=== PATIENT | female | born 1965 | race Caucasian/White ===

== ENCOUNTER 2018-07-16 20:18 | Inpatient (IN) | payer SELFPAY ==
[~2018-07-16] VITALS: Ht 157.5 cm; Wt 117.0 kg
[2018-07-16] MEDS ORDERED: IV NORMAL SALINE 1,000ML 1,000 ML IV SCH (20:40)
[2018-07-16] MEDS ORDERED: methylPREDNISolone SOD SUCC PF 125 MG/2 ML VIAL. IV ONE (20:45)
[2018-07-16] MEDS ORDERED: IPRATRPIUM/ALBUTEROL 0.5/2.5MG 3 ML NEBU. NEB ONE (20:45)
[2018-07-16] MEDS ORDERED: MORPHINE SULFATE 4 MG/ML DISP.SYRIN. IV/SQ PRN (20:45)
[2018-07-16 21:18] LABS: BASO # 0.1 x10^3/uL (0.0-0.2); BASO % 1 % (0-3); EOS % 0 % (0-3); HEMATOCRIT 42.9 % (36.0-47.0); HEMOGLOBIN 13.7 g/dL (12.0-15.5); LYMPH # 1.5 x10^3/uL (1.0-4.8); LYMPH % 13 % (24-48); MEAN CORPUSCULAR HEMOGLOBIN 28 pg (25-35); MEAN CORPUSCULAR HGB CONC 32 g/dL (31-37); MEAN CORPUSCULAR VOLUME 86 fL (79-100); MONO # 1.2 x10^3/uL (0.0-1.1); MONO % 11 % (0-9); NEUT # 8.6 x10^3uL (1.8-7.7); NEUT % 75 % (31-73); PLATELET COUNT 169 x10^3/uL (140-400); RED BLOOD COUNT 4.98 x10^6/uL (3.50-5.40); WHITE BLOOD COUNT 11.4 x10^3/uL (4.0-11.0)
[2018-07-16 21:33] LABS: ALBUMIN 3.2 g/dL (3.4-5.0); ALBUMIN/GLOBULIN RATIO 0.8 (1.0-1.7); CALCIUM 9.9 mg/dL (8.5-10.1); CREATININE 0.8 mg/dL (0.6-1.0); GFR 74.7; POTASSIUM 3.9 mmol/L (3.5-5.1); TOTAL BILIRUBIN 0.7 mg/dL (0.2-1.0); TOTAL PROTEIN 7.3 g/dL (6.4-8.2)
--- NOTE | 2018-07-16 21:36 | RAD ---
CHEST PA LATERAL CLINICAL INDICATION: Cough COMPARISON: None FINDINGS: Heart is normal in size. Bilateral central peribronchial wall thickening is seen. Small focus of consolidation is seen in the costophrenic recess. No pneumothorax or pleural effusion. Visualized bony thorax is within normal limits. IMPRESSION: Findings suggests costophrenic recess pneumonia and bronchitis. Electronically signed by: Robin Montiel DO (07/16/2018 9:33 PM) [facility]
[2018-07-16 21:46] LABS: INFLUENZA A PATIENT NEGATIVE (NEGATIVE); INFLUENZA B PATIENT NEGATIVE (NEGATIVE)
--- NOTE | 2018-07-16 22:16 | PHYS DOC ---
Adult General Chief Complaint Chief Complaint: DYSPNEA/RESPIRATOY DISTRESS HPI HPI Patient is a 52-year-old female who presents with complaint of cough, fever and shortness of breath that started 2 days ago. Patient states that symptoms have fairly rapidly worsened. She states that her cough has been productive of green sputum. She states the shortness of breath is worsened with minimal exertion. Patient is not on home oxygen. On arrival, patient's blood oxygen level was noted to be 88% on room air. She does complain of some pleuritic type pain in her right lower lateral rib region. She states the pain is worsened with deep breathing. She denies any abdominal pain, nausea or vomiting. Patient is not sure how high the fevers been at home. Review of Systems Review of Systems Constitutional: Complains of fever and chills [] Respiratory: Complains of productive cough and shortness of breath [] Cardiovascular: No additional information not addressed in HPI [] GI: Denies abdominal pain, nausea, vomiting or diarrhea [] Neurologic: Denies headache, focal weakness or sensory changes [] All other systems were reviewed and found to be within normal limits, except as documented in this note. Current Medications Current Medications Current Medications Medications (Trade) Dose Ordered Sig/Jhonathan Start Time Stop Time Status Last Admin Dose Admin Albuterol/ Ipratropium (Duoneb) 3 ml 1X ONCE 07/16/18 20:45 07/16/18 20:46 DC 07/16/18 21:25 3 ML Methylprednisolone Sodium Succinate (SOLU-Medrol 125MG VIAL) 125 mg 1X ONCE 07/16/18 20:45 07/16/18 20:46 DC 07/16/18 21:20 125 MG Morphine Sulfate (Morphine 4mg Syringe) 2 mg PRN Q15MIN PRN 07/16/18 20:45 07/17/18 20:44 07/16/18 21:21 2 MG Sodium Chloride 1,000 ml @ 1,000 mls/hr Q1H 07/16/18 20:40 07/16/18 21:39 DC 07/16/18 21:20 1,000 MLS/HR Allergies Allergies Allergies Coded Allergies Type Severity Reaction Last Updated Verified sulfamethoxazole Allergy Severe Itching 07/16/18 Yes trimethoprim Allergy Severe Itching 07/16/18 Yes coconut Allergy Intermediate Itching 07/16/18 Yes Uncoded Allergies Type Severity Reaction Last Updated Verified cats Allergy Unknown 07/16/18 Physical Exam Physical Exam Constitutional: Well developed, well nourished, no acute distress, non-toxic appearance. [] HENT: Normocephalic, atraumatic, bilateral external ears normal, oropharynx moist, no oral exudates, nose normal. [] Eyes: PERRLA, EOMI, conjunctiva normal, no discharge. [] Neck: Normal range of motion, no tenderness, supple, no stridor. [] Cardiovascular: Regular rate and rhythm[] Lungs & Thorax: Lungs demonstrate some mildly diminished breath sounds throughout and fine rhonchi in the right lung base [] Abdomen: Bowel sounds normal, soft, no tenderness. [] Skin: Warm, dry, no erythema, no rash. [] Extremities: No tenderness, no cyanosis, no clubbing, ROM intact. [] Neurologic: Alert and oriented X 3, no focal deficits noted. [] Current Patient Data Vital Signs Vital Signs Date Time Temp Pulse Resp B/P (MAP) Pulse Ox O2 Delivery O2 Flow Rate FiO2 07/16/18 21:28 93 Nasal Cannula 2.0 Lab Results Laboratory Tests Test 07/16/18 20:45 07/16/18 20:57 White Blood Count 11.4 x10^3/uL (4.0-11.0) H Red Blood Count 4.98 x10^6/uL (3.50-5.40) Hemoglobin 13.7 g/dL (12.0-15.5) Hematocrit 42.9 % (36.0-47.0) Mean Corpuscular Volume 86 fL (79-100) Mean Corpuscular Hemoglobin 28 pg (25-35) Mean Corpuscular Hemoglobin Concent 32 g/dL (31-37) Red Cell Distribution Width 15.0 % (11.5-14.5) H Platelet Count 169 x10^3/uL (140-400) Neutrophils (%) (Auto) 75 % (31-73) H Lymphocytes (%) (Auto) 13 % (24-48) L Monocytes (%) (Auto) 11 % (0-9) H Eosinophils (%) (Auto) 0 % (0-3) Basophils (%) (Auto) 1 % (0-3) Neutrophils # (Auto) 8.6 x10^3uL (1.8-7.7) H Lymphocytes # (Auto) 1.5 x10^3/uL (1.0-4.8) Monocytes # (Auto) 1.2 x10^3/uL (0.0-1.1) H Eosinophils # (Auto) 0.0 x10^3/uL (0.0-0.7) Basophils # (Auto) 0.1 x10^3/uL (0.0-0.2) Sodium Level 141 mmol/L (136-145) Potassium Level 3.9 mmol/L (3.5-5.1) Chloride Level 105 mmol/L (98-107) Carbon Dioxide Level 29 mmol/L (21-32) Anion Gap 7 (6-14) Blood Urea Nitrogen 9 mg/dL (7-20) Creatinine 0.8 mg/dL (0.6-1.0) Estimated GFR (Cockcroft-Gault) 74.7 BUN/Creatinine Ratio 11 (6-20) Glucose Level 125 mg/dL (70-99) H Lactic Acid Level 0.9 mmol/L (0.4-2.0) Calcium Level 9.9 mg/dL (8.5-10.1) Total Bilirubin 0.7 mg/dL (0.2-1.0) Aspartate Amino Transferase (AST) 14 U/L (15-37) L Alanine Aminotransferase (ALT) 17 U/L (14-59) Alkaline Phosphatase 114 U/L (46-116) Total Protein 7.3 g/dL (6.4-8.2) Albumin 3.2 g/dL (3.4-5.0) L Albumin/Globulin Ratio 0.8 (1.0-1.7) L Influenza Type A (Rapid) Negative (NEGATIVE) Influenza Type B (Rapid) Negative (NEGATIVE) EKG EKG [] Radiology/Procedures Radiology/Procedures [] Impressions: CHEST PA LATERAL CLINICAL INDICATION: Cough COMPARISON: None FINDINGS: Heart is normal in size. Bilateral central peribronchial wall thickening is seen. Small focus of consolidation is seen in the costophrenic recess. No pneumothorax or pleural effusion. Visualized bony thorax is within normal limits. IMPRESSION: Findings suggests costophrenic recess pneumonia and bronchitis. Electronically signed by: Robin Montiel DO (07/16/2018 9:33 PM) [facility] Course & Med Decision Making Course & Med Decision Making Pertinent Labs and Imaging studies reviewed. (See chart for details) [] Dragon Disclaimer Dragon Disclaimer This electronic medical record was generated, in whole or in part, using a voice recognition dictation system. Departure Departure: Impression: Primary Impression: Community acquired pneumonia Additional Impression: COPD with acute exacerbation Disposition: ADMITTED INPATIENT Admitting Physician: Sandhya Albarado Condition: IMPROVED Problem Qualifiers Primary Impression: Community acquired pneumonia Laterality: right Lung location: lower lobe of lung Qualified Codes: J18.1 - Lobar pneumonia, unspecified organism TRISTAN VU Jr. DO Jul 16, 2018 22:16
[2018-07-16] MEDS ORDERED: ONDANSETRON PF 4 MG/2 ML VIAL. IV PRN (22:30)
[2018-07-16] MEDS ORDERED: MORPHINE SULFATE 4 MG/ML DISP.SYRIN. IV PRN (22:30)
[2018-07-16] MEDS ORDERED: ACETAMINOPHEN 325 MG TABLET PO PRN (22:30)
[2018-07-16] MEDS ORDERED: AZITHROMYCIN 250 MG TABLET. PO ONE (22:30)
--- NOTE | 2018-07-16 23:15 | NUR ---
The patient, GILBERTO MILLER, 52 y/o, F admitted by ELISABETH HUDDLESTON MD, for pneumonia. PT was given written information regarding hospital policies, unit procedures and contact persons. Valuables were checked and left with pt. Pt VSS at this time. Will CTM.
[2018-07-17] VITALS (7 sets, daily range): BP systolic 109–141; BP diastolic 67–88
[2018-07-17] MEDS ORDERED: PROAIR (01:18)
[2018-07-17] MEDS: IPRATRPIUM/ALBUTEROL 0.5/2.5MG 3 ML NEBU. NEB SCH ×4 (05:23→20:21)
[2018-07-17 07:12] LABS: BASO % 0 % (0-3); EOS % 0 % (0-3); HEMATOCRIT 42.8 % (36.0-47.0); HEMOGLOBIN 13.8 g/dL (12.0-15.5); LYMPH # 0.8 x10^3/uL (1.0-4.8); LYMPH % 8 % (24-48); MEAN CORPUSCULAR HEMOGLOBIN 28 pg (25-35); MEAN CORPUSCULAR HGB CONC 32 g/dL (31-37); MEAN CORPUSCULAR VOLUME 88 fL (79-100); MONO # 0.3 x10^3/uL (0.0-1.1); MONO % 3 % (0-9); NEUT # 8.6 x10^3uL (1.8-7.7); NEUT % 89 % (31-73); PLATELET COUNT 170 x10^3/uL (140-400); RED BLOOD COUNT 4.89 x10^6/uL (3.50-5.40); RED CELL DISTRIBUTION WIDTH 14.6 % (11.5-14.5); WHITE BLOOD COUNT 9.6 x10^3/uL (4.0-11.0)
[2018-07-17 07:26] LABS: CALCIUM 10.4 mg/dL (8.5-10.1); CREATININE 0.8 mg/dL (0.6-1.0); GFR 74.7; POTASSIUM 4.8 mmol/L (3.5-5.1)
--- NOTE | 2018-07-17 14:58 | HP ---
ADMIT DATE: 07/17/2018 HISTORY OF PRESENT ILLNESS: The patient is a 52-year-old female patient, who came to the Emergency Room complaining of cough, fever, shortness of breath that started about 2 days ago. She stated her symptom have fairly rapidly worsened stating that her cough has been productive greenish sputum. She stated that shortness of breath has worsened with minimal exertion. She is not on home oxygen. On arrival, her oxygen was only 88% on room air. She does complain of some pleuritic type pain in the right lower lateral rib region. She stated her pain has worsened with deep breath. She denied any abdominal pain, nausea, vomiting. The patient is not sure how high the fever, pain at home. She was evaluated in the Emergency Room, had had a chest x-ray, which showed that the patient has bilateral central peribronchial wall thickening is seen. She has small focus of consolidation is seen in the costophrenic recess. No pneumothorax or pleural effusion. Visualized bony thorax been normal limits and she was admitted with community-acquired pneumonia and COPD exacerbation. She was admitted, was treated with IV antibiotic, Zithromax, ceftriaxone and Solu-Medrol. PAST MEDICAL HISTORY: Significant for cervical cancer and bronchial asthma as well as morbid obesity and obstructive sleep apnea. PAST SURGICAL HISTORY: Significant for total abdominal hysterectomy and bilateral salpingo-oophorectomy, tonsillectomy. ALLERGIES: She is allergic to CATS, COCONUT, BACTRIM. MEDICATIONS: She is normally on following medication at home. She is on ProAir. FAMILY HISTORY: She has 2 brothers, no sisters. Her father last year. Her mother is alive and healthy. SOCIAL HISTORY: She is , has one daughter. She smokes 8 cigarettes per day. She does not drink alcohol or use recreational drugs. She works with [employer]. REVIEW OF SYSTEMS: The patient denied any blurring of vision, cataract, glaucoma or macular degeneration. Denied any earache, tinnitus or sensorineural deafness. Denied any nosebleeds, stuffy nose or postnasal drip. Denied any sore throat, sore tongue, toothache, hoarseness of voice or difficulty swallowing. Denied any nausea, vomiting, diarrhea or constipation. Denied any hematemesis, melena or hematochezia. Denied any dysuria, frequency or hematuria. Denied any chest pain. Did complain of shortness of breath, cough with greenish sputum. Did complain of chills, rigors or fever. Denied any dizziness, lightheadedness, or vertigo. PHYSICAL EXAMINATION: GENERAL: On arrival to the Emergency Room, she was clearly tachypneic, hypoxic and febrile. There was no pallor, jaundice, cyanosis, or thyromegaly. No jugular venous distension. No limb edema. VITAL SIGNS: Her heart rate was 113, blood pressure was 109/67, temperature was 100.9, respiratory rate was 40 and oxygen saturation was 87% on room air. HEAD, EYES, EARS, NOSE AND THROAT: Showed normocephalic, atraumatic. NECK: Supple. HEART: Showed normal first and second heart sounds. No gallop, rub or murmur. CHEST: Showed central trachea, equal bilateral chest expansion, air entry, vesicular sounds with bilateral scattered rhonchi with crepitation mostly in the right lung posteriorly. ABDOMEN: Distended, soft, nontender. NEUROLOGIC: She is awake, alert, responding appropriately with no focal deficit. LABORATORY DATA: While in the Emergency Room, she had lab work done, which showed a white cell count of 11,400, hemoglobin 13.7, hematocrit 42, MCV was 86 and platelet count of 169,000. Her serum sodium was 141, potassium 3.9, chloride 105, bicarbonate 29, anion gap of 7, BUN 9, creatinine 0.8, estimated GFR was 74 mL per minute. Her glucose 125. Her calcium was 9.9. Total bilirubin, AST, ALT, alkaline phosphatase were normal. Total protein was 7.3, albumin 3.2. Her influenza A and B were negative. Her chest x-ray showed that the heart size is normal. She has bilateral central peribronchial wall thickening and seen small focus of consolidation is seen in the costophrenic recess. No pneumothorax or pleural effusion. Visualized bony thorax within normal limits. ASSESSMENT AND PLAN: The patient was admitted and was treated for community-acquired pneumonia with IV Rocephin and Zithromax. Also continued on bronchodilators and continued on oxygen 2 liters by nasal cannula. ELISABETH HUDDLESTON MD DR: ERIC/perlita JOB#: [id number] / [id number]
--- NOTE | 2018-07-17 19:18 | PN ---
DATE: 07/17/2018 SUBJECTIVE: The patient is resting in the edge of the bed comfortably, in no apparent distress. She is definitely feeling much better. She continued to have some chest tightness and right-sided pleuritic chest pain, but her shortness of breath, chest tightness and wheezing is much improved. She is afebrile. PHYSICAL EXAMINATION: GENERAL: When I examined her today, she looked well and was clearly in no apparent respiratory distress, slightly pale, but no jaundice, cyanosis, or thyromegaly. No jugular venous distension. No lower limb edema. VITAL SIGNS: Her heart rate was 99, blood pressure was 109/67, temperature was 98.5, respiratory rate was 18, and oxygen saturation was 92% on 2 liters of oxygen. HEAD, EYES, EARS, NOSE AND THROAT: Showed normocephalic, atraumatic. NECK: Supple. HEART: Showed normal first and second sounds. No gallop, rub or murmur. CHEST: Clear to auscultation. No crepitation or rhonchi. ABDOMEN: Distended, soft, nontender. No guarding or rigidity. No organomegaly. All hernial orifices intact. Bowel sounds normal. NEUROLOGIC: She is awake, alert, responding appropriately. All cranial nerves intact. She moves extremities without difficulty. Her intake over the last 24 hours was 1100. LABORATORY DATA: Her lab work showed a white cell count 9600, hemoglobin 14, hematocrit 42, MCV 88 and platelet count of 170,000. Her chemistry showed a serum sodium 142, potassium 4.8, chloride 109, bicarbonate 29, anion gap of 4, BUN 10, creatinine 0.8, estimated GFR was 75 mL per minute, her glucose was 101 and calcium was 10.4. ASSESSMENT: 1. Acute hypoxic respiratory failure. 2. Community-acquired pneumonia. 3. Chronic obstructive pulmonary disease exacerbation. 4. Morbid obesity. PLAN: To continue with antibiotic. Continue bronchodilators. We will evaluate her again tomorrow and if she has no further shortness of breath and wheezing, she can be discharged to finish treatment as an outpatient. ELISABETH HUDDLESTON MD DR: ERIC/perlita JOB#: [id number] / [id number]
[2018-07-17] MEDS: LACTOBACILLUS RHAMNOSUS GG 1 CAPSULE. PO SCH (21:47)
[2018-07-18] MEDS: IPRATRPIUM/ALBUTEROL 0.5/2.5MG 3 ML NEBU. NEB SCH (05:18)
[2018-07-18 05:31] VITALS: BP 116/76
[2018-07-18] MEDS: LACTOBACILLUS RHAMNOSUS GG 1 CAPSULE. PO SCH (09:00)
[2018-07-18] MEDS ORDERED: AZITHROMYCIN 250 MG TABLET. PO SCH (09:00)
[2018-07-18 10:46] VITALS: BP 149/76
[2018-07-18] MEDS ORDERED: IPRA3AMP29 NEB (10:47)
[2018-07-18] MEDS ORDERED: CEFP200T PO (10:47)
[2018-07-18] MEDS ORDERED: AZIT250T PO (10:47)
--- NOTE | 2018-07-18 11:04 | DS ---
DATE OF DISCHARGE: 07/18/2018 HOSPITAL COURSE: The patient is sitting at the edge of the bed comfortably, in no apparent distress. She is awake and alert, denied any complaint except right-sided chest pain that is pleuritic. She is maintaining her oxygen saturation at 92% on room air. She actually managed to walk quite a distance, probably 40-50 feet, maintaining her oxygen saturation at 91%. PHYSICAL EXAMINATION: GENERAL: When I examined her this morning, she looked well and was clearly in no apparent respiratory distress. No pallor, jaundice, cyanosis, or thyromegaly. No jugular venous distension. No lower limb edema. VITAL SIGNS: Her heart rate was 89, blood pressure 116/76, temperature was 98.1, respiratory rate was 20, and oxygen saturation was 92% on room air. HEAD, EYES, EARS, NOSE AND THROAT: Shows normocephalic, atraumatic. NECK: Supple. HEART: Showed normal first and second sounds. No gallop, rub or murmur. CHEST: Shows central trachea, equally reduced expansion, reduced air entry, vesicular sounds. I could not appreciate any crepitation or rhonchi. ABDOMEN: Distended, soft, nontender. NEUROLOGIC: She is awake, alert, responding appropriately. Cranial nerves intact. She moves her extremities without difficulty. She ambulates without assistance or assistive devices. LABORATORY DATA: As of yesterday showed a white cell count 9600, hemoglobin 14, hematocrit 42, MCV 86 and platelet count of 170,000. Her chemistry showed a serum sodium 142, potassium 4.8, chloride 109, bicarbonate 29, anion gap of 4, BUN 10, creatinine 0.8, estimated GFR was 74 mL per minute. Her glucose was 101, calcium was 10.4. Her influenza A and B were negative. DISCHARGE MEDICATIONS: She was discharged home to continue on tapering course of steroids in the form of prednisone 40 mg once a day for 3 days, 30 mg once a day for 3 days, 20 mg once a day for 3 days, and 10 mg once a day for 3 days. She was discharged also on Zithromax 250 mg once a day for 7 days, Vantin 200 mg twice a day for 7 days. She was also discharged on albuterol sulfate inhaler 2 puffs every 4 hours and DuoNeb 0.5-2.5 mg 3 mL by nebulizer 4 times a day. FINAL DISCHARGE DIAGNOSES: 1. Acute hypoxic respiratory failure, resolved. 2. Community-acquired pneumonia. 3. Chronic obstructive pulmonary disease exacerbation. 4. Morbid obesity, questionable obstructive sleep apnea. The patient was counseled about cigarette smoking and offered ways to help her quit, but she continues to enjoy her cigarettes and she can only cut them down. She cannot stop them, cold turkey according to her. ELISABETH HUDDLESTON MD DR: ERIC/perlita JOB#: [id number] / [id number]
--- NOTE | 2018-07-18 13:57 | NUR ---
Discharge Note: JESSE MILLER [facility] Discharge instructions and discharge home medications reviewed with patient and a copy given. All questions have been answered and understanding verbalized. The following instructions and handouts were given: medications, follow up instructions, prescriptions and educational handouts given. Discontinued lines and drains: peripheral IV discontinued with no complications. Patient discharged to home with family via private vehicle.
== END 2018-07-18 13:58 | disposition home or self-care (01) | DRG 193 ==
LOC: ER 20:18 → 1 SOUTH 22:34
PROVIDERS: ADMIT Internal Medicine; ATTEND Internal Medicine
DX: J18.9 Pneumonia, unspecified organism (principal); J96.01 Acute respiratory failure with hypoxia; J44.0 Chronic obstructive pulmonary disease with (acute) lower respiratory infection; J44.1 Chronic obstructive pulmonary disease with (acute) exacerbation; G47.33 Obstructive sleep apnea (adult) (pediatric); E66.01 Morbid (severe) obesity due to excess calories; F17.210 Nicotine dependence, cigarettes, uncomplicated; Z79.899 Other long term (current) drug therapy; Z85.41 Personal history of malignant neoplasm of cervix uteri; Z90.710 Acquired absence of both cervix and uterus; Z90.722 Acquired absence of ovaries, bilateral; Z88.2 Allergy status to sulfonamides; Z88.8 Allergy status to other drugs, medicaments and biological substances; Z91.018 Allergy to other foods; Z91.09 Other allergy status, other than to drugs and biological substances
CPT/HCPCS: 36415; 71046; 80048; 80053; 83605; 85025; 87040; 87804; 94640; 96361; 96365; 96375; 99406; J0456; J0696; J2270; J2930; J7620; 99285-25; J7030

== ENCOUNTER 2019-09-13 05:17 | Emergency (ER) | payer OTHER ==
[~2019-09-13] VITALS: Ht 157.5 cm; Wt 115.9 kg
[~2019-09-13 05:17] MED LIST: AZIT250T PO; CEFP200T PO; IPRA3AMP29 NEB; PROAIR
[2019-09-13] MEDS ORDERED: OXYMETAZOLINE 0.05% NASAL SPRAY 30ML BOTTLE. NS ONE (05:19)
[2019-09-13] MEDS: OXYMETAZOLINE 0.05% NASAL SPRAY 30ML BOTTLE. NS ONE (05:20)
--- NOTE | 2019-09-13 05:21 | PHYS DOC ---
Past History Past Medical History: Asthma, Bronchitis, Cancer, COPD, High Cholesterol, Hypertension, Lung Disease (TORREY FERRARA MD) Past Medical History: Asthma, Bronchitis, Cancer, COPD, High Cholesterol, Hypertension (HARISH RODRIGUEZ DO) Past Surgical History: Cancer Surgery, Hysterectomy (TORREY FERRARA MD) Past Surgical History: Hysterectomy Additional Past Surgical Histo: "Cancer surgery" (HARISH RODRIGUEZ DO) Alcohol Use: Rarely Drug Use: None (TORREY FERRARA MD) Smoking: Cigarettes Alcohol Use: None Drug Use: None (HARISH RODRIGUEZ DO) General Adult EDM: Chief Complaint: Nose bleed HPI: HPI: ".. I got this nose bleed... " Patient is a 54 year old female who presents with above hx and complaints (TORREY FERRARA MD) HPI: 54-year-old female with past medical history of high blood pressure presents with report of nosebleed from right nare which started this morning at approximately 0400. Denies use of blood thinners. Patient reports she had gotten up to use the restroom and felt like her nose was "itchy ". Reports she itched inside and subsequently developed the nosebleed. Patient reports that bleeding was uncontrolled and therefore presents to the ER for further evaluation. Denies dizziness or lightheadedness. She has not been compliant with her blood pressure medication. (HARISH RODRIGUEZ DO) Review of Systems: Review of Systems: Constitutional: Denies fever or chills Eyes: Denies change in visual acuity HENT: Denies nasal congestion or sore throat Respiratory: Denies cough or shortness of breath Cardiovascular: Denies chest pain or edema GI: Denies abdominal pain, nausea, vomiting, bloody stools or diarrhea : Denies dysuria Musculoskeletal: Denies back pain or joint pain Integument: Denies rash Neurologic: Denies headache, focal weakness or sensory changes Endocrine: Denies polyuria or polydipsia Lymphatic: Denies swollen glands Psychiatric: Denies depression or anxiety (TORREY FERRARA MD) Review of Systems: Constitutional: Denies fever or chills Eyes: Denies redness or eye pain HENT: Denies nasal congestion or sore throat; reports epistaxis Respiratory: Denies cough or shortness of breath Cardiovascular: Denies chest pain or palpitations GI: Denies abdominal pain, nausea, or vomiting : Denies dysuria or hematuria Musculoskeletal: Denies back pain or joint pain Integument: Denies rash or skin lesions Neurologic: Denies headache, focal weakness or sensory changes Complete systems were reviewed and found to be within normal limits, except as documented in this note. (HARISH RODRIGUEZ DO) Heart Score: Risk Factors: Risk Factors: DM, Current or recent (<one month) smoker, HTN, HLP, family history of CAD, obesity. Risk Scores: Score 0 - 3: 2.5% MACE over next 6 weeks - Discharge Home Score 4 - 6: 20.3% MACE over next 6 weeks - Admit for Clinical Observation Score 7 - 10: 72.7% MACE over next 6 weeks - Early Invasive Strategies (TORREY FERRARA MD) Current Medications: Current Meds: Current Medications Medications (Trade) Dose Ordered Sig/Jhonathan Start Time Stop Time Status Last Admin Dose Admin Oxymetazoline HCl (Afrin) 100 spray STK-MED ONCE 09/13/19 05:19 09/13/19 05:19 DC (TORREY FERRARA MD) Allergies: Allergies: Allergies Coded Allergies Type Severity Reaction Last Updated Verified sulfamethoxazole Allergy Severe Itching 07/16/18 Yes trimethoprim Allergy Severe Itching 07/16/18 Yes coconut Allergy Intermediate Itching 07/16/18 Yes Uncoded Allergies Type Severity Reaction Last Updated Verified cats Allergy Unknown 07/16/18 (TORREY FERRARA MD) Physical Exam: PE: Constitutional: Well developed, well nourished, no acute distress, non-toxic appearance. [] HENT: Normocephalic, atraumatic, bilateral external ears normal, oropharynx moist, no oral exudates, nose normal. [] Eyes: PERRLA, EOMI, conjunctiva normal, no discharge. [] Neck: Normal range of motion, no tenderness, supple, no stridor. [] Cardiovascular:Heart rate regular rhythm, no murmur [] Lungs & Thorax: Bilateral breath sounds clear to auscultation [] Abdomen: Bowel sounds normal, soft, no tenderness, no masses, no pulsatile masses. [] Skin: Warm, dry, no erythema, no rash. [] Back: No tenderness, no CVA tenderness. [] Extremities: No tenderness, no cyanosis, no clubbing, ROM intact, no edema. [] Neurologic: Alert and oriented X 3, normal motor function, normal sensory function, no focal deficits noted. [] Psychologic: Affect normal, judgement normal, mood normal. [] (TORREY FERRARA MD) PE: Constitutional: Well developed, well nourished, no acute distress, non-toxic appearance HENT: Normocephalic, atraumatic, oropharynx moist, active bleeding from right septum, some blood in pharynx Eyes: Conjunctiva normal, no discharge Neck: Normal range of motion, no tenderness, supple Lungs & Thorax: No respiratory distress, equal chest rise and fall, no auditory wheezing Skin: Warm, dry, no erythema, no rash Extremities: No tenderness, ROM intact, no edema Neurologic: Alert and oriented X 3, no focal deficits noted Psychologic: Affect normal, judgment normal (HARISH RODRIGUEZ DO) EKG: EKG: [] (TORREY FERRARA MD) Radiology/Procedures: Radiology/Procedures: [] (TORREY FERRARA MD) Course & Med Decision Making: Course & Med Decision Making Pertinent Labs and Imaging studies reviewed. (See chart for details) See Charting by Dr. Rodriguez.-Endorsed to his care at shift change. He will make disposition. [] (TORREY FERRARA MD) Course & Med Decision Making Patient presents with right sided nosebleed which appears anterior. Blood pressure significantly elevated. Patient does have history of high blood pressure but is currently not on any blood pressure medication. Bleeding controlled with Afrin and nasal clamp. Blood pressure medication previously provided (ordered by Dr. Ferarra) with interval improvement. Epistaxis continued and required placement of anterior 5.5cm Rhino Rocket. Patient monitored with continued resolution of epistaxis. Blood pressure improved. Clonidine patch removed by myself. A prescription for Clonidine 0.1mg PO BID prn provided. Patient stable for discharge with outpatient follow-up with PCP. Discussed findings and plan with patient, who acknowledges understanding and agreement. (HARISH RODRIGUEZ DO) Dragon Disclaimer: Dragon Disclaimer: This electronic medical record was generated, in whole or in part, using a voice recognition dictation system. (TORREY FERRARA MD) Additional Procedures Progress Epistaxis Management- placement of Rhino Rocket Verbal consent obtained. Time out performed. Hand hygiene utilized. Utilized after failed attempts with nasal clamps and administration of Afrin. An anterior 5.5cm Rhino Rocket soaked in sterile water and placed to right nare and inflated. Patient monitored for further bleeding which continued to be resolved after 15 min. Patient tolerated procedure well and without difficulty. (HARISH RODRIGUEZ DO) Departure Departure: Impression: Primary Impression: Epistaxis Additional Impression: Hypertension Qualified Codes: I10 - Essential (primary) hypertension Disposition: HOME, SELF-CARE Condition: IMPROVED Referrals: PCP,NO (PCP) Patient Instructions: Hypertension, [id number], Nosebleed, [id number] Additional Instructions: Rhino Rocket epistaxis tampon will require removal in next 24-48 hours. Please follow up with your doctor or return to Emergency Department and/or Urgent Care for removal. Scripts Clonidine Hcl (CLONIDINE HCL) 0.1 Mg Tablet 0.1 MG PO BID PRN for ELEVATED BP, SEE COMMENTS, #20 TAB Take as needed for systolic (upper) blood pressure >175 and/or diastolic (lower) blood pressure >105. Prov: HARISH RODRIGUEZ DO 09/13/19 Dragon Disclaimer This chart was dictated in whole or in part using Voice Recognition software in a busy, high-work load, and often noisy Emergency Department environment. It may contain unintended and wholly unrecognized errors or omissions. (TORREY FERRARA MD) Dragon Disclaimer This chart was dictated in whole or in part using Voice Recognition software in a busy, high-work load, and often noisy Emergency Department environment. It may contain unintended and wholly unrecognized errors or omissions. (HARISH RODRIGUEZ DO) Dragon Disclaimer This chart was dictated in whole or in part using Voice Recognition software in a busy, high-work load, and often noisy Emergency Department environment. It may contain unintended and wholly unrecognized errors or omissions. (TORREY FERRARA MD) TORREY FERRARA MD Sep 13, 2019 05:21 HARISH RODRIGUEZ DO Sep 13, 2019 06:45
[2019-09-13] MEDS: cloNIDine TTS-2 1 PATCH PATCH TD ONE (06:12)
[2019-09-13] MEDS: cloNIDine HCL 0.1 MG TABLET PO ONE (06:12)
[2019-09-13] MEDS ORDERED: CLON0.1T PO (06:45)
[2019-09-13 06:56] VITALS: BP 122/66
== END 2019-09-13 07:14 | disposition home or self-care (01) ==
LOC: ER 05:17
DX: R04.0 Epistaxis (principal); I10 Essential (primary) hypertension; J44.9 Chronic obstructive pulmonary disease, unspecified; E78.00 Pure hypercholesterolemia, unspecified; F17.210 Nicotine dependence, cigarettes, uncomplicated; Z88.2 Allergy status to sulfonamides; Z88.1 Allergy status to other antibiotic agents; Z91.018 Allergy to other foods
CPT/HCPCS: 30901; 99284

== ENCOUNTER 2019-09-14 14:09 | Emergency (ER) | payer OTHER ==
[~2019-09-14] VITALS: Ht 157.5 cm; Wt 121.7 kg
[~2019-09-14 14:09] MED LIST changes: +CLON0.1T PO
--- NOTE | 2019-09-14 14:50 | PHYS DOC ---
Past History Past Medical History: Asthma, Bronchitis, Cancer, COPD, Hypertension Past Surgical History: Hysterectomy Additional Past Surgical Histo: "Cancer surgery" Smoking: Cigarettes Alcohol Use: None Drug Use: None General Adult EDM: Chief Complaint: OTHER COMPLAINTS HPI: HPI: 54-year-old female presents with nasal packing. The patient had epistasis and was seen in this facility yesterday. A Rhino Rocket was placed in her right nare. She has had no further bleeding. She would like to have it removed. While in the room, the patient had low oxygen. She states that she always has a low oxygen level. She is a smoker. She has been feeling at her baseline other than the nosebleed. She has no other complaints. She also has hypertension and she knows that her blood pressure is higher than it should be. Review of Systems: Review of Systems: Constitutional: Denies fever or chills Eyes: Denies change in visual acuity HENT: Denies nasal congestion or sore throat. Nasal packing Respiratory: Denies cough or shortness of breath Cardiovascular: Denies chest pain or edema GI: Denies abdominal pain, nausea, vomiting, bloody stools or diarrhea : Denies dysuria Musculoskeletal: Denies back pain or joint pain Integument: Denies rash Neurologic: Denies headache, focal weakness or sensory changes Endocrine: Denies polyuria or polydipsia Lymphatic: Denies swollen glands Psychiatric: Denies depression or anxiety Heart Score: Risk Factors: Risk Factors: DM, Current or recent (<one month) smoker, HTN, HLP, family history of CAD, obesity. Risk Scores: Score 0 - 3: 2.5% MACE over next 6 weeks - Discharge Home Score 4 - 6: 20.3% MACE over next 6 weeks - Admit for Clinical Observation Score 7 - 10: 72.7% MACE over next 6 weeks - Early Invasive Strategies Allergies: Allergies: Allergies Coded Allergies Type Severity Reaction Last Updated Verified sulfamethoxazole Allergy Severe Itching 07/16/18 Yes trimethoprim Allergy Severe Itching 07/16/18 Yes coconut Allergy Intermediate Itching 07/16/18 Yes Uncoded Allergies Type Severity Reaction Last Updated Verified cats Allergy Unknown 07/16/18 Physical Exam: PE: Constitutional: Well developed, well nourished, no acute distress, non-toxic appearance. [] HENT: Normocephalic, atraumatic, bilateral external ears normal, oropharynx mois t, no oral exudates, nose with Rhino Rocket in the right nares, no obvious bleeding. [] Eyes: PERRLA, EOMI, conjunctiva normal, no discharge. [] Neck: Normal range of motion, no tenderness, supple, no stridor. [] Cardiovascular:Heart rate regular rhythm, no murmur [] Lungs & Thorax: Bilateral breath sounds clear to auscultation [] Abdomen: Bowel sounds normal, soft, no tenderness, no masses, no pulsatile masses. [] Skin: Warm, dry, no erythema, no rash. [] Back: No tenderness, no CVA tenderness. [] Extremities: No tenderness, no cyanosis, no clubbing, ROM intact, no edema. [] Neurologic: Alert and oriented X 3, normal motor function, normal sensory function, no focal deficits noted. [] Psychologic: Affect normal, judgement normal, mood normal. [] Current Patient Data: Vital Signs: Vital Signs Date Time Temp Pulse Resp B/P (MAP) Pulse Ox O2 Delivery O2 Flow Rate FiO2 09/14/19 14:10 97.6 90 28 194/111 (138) 88 Room Air EKG: EKG: [] Radiology/Procedures: Radiology/Procedures: [] Course & Med Decision Making: Course & Med Decision Making Pertinent Labs and Imaging studies reviewed. (See chart for details) I was able to remove the patient's nasal packing without complication. I told the patient she really should stop smoking and that her blood pressure needs to be controlled. She stated verbal understanding. She is stable for discharge at this time. [] Estiven Disclaimer: Estiven Disclaimer: This electronic medical record was generated, in whole or in part, using a voice recognition dictation system. Departure Departure: Impression: Primary Impression: Hypertension Qualified Codes: I10 - Essential (primary) hypertension Additional Impression: Encounter for removal of nasal packing Disposition: HOME, SELF-CARE Condition: STABLE Referrals: PCP,TAQUERIA (PCP) Patient Instructions: Hypertension, [id number], Nosebleed, [id number] AISHA MONTESINOS DO Sep 14, 2019 14:50
[2019-09-14] MEDS ORDERED: cloNIDine HCL 0.1 MG TABLET ONE (14:52)
[2019-09-14 14:53] VITALS: BP 187/112
[2019-09-14] MEDS: cloNIDine HCL 0.1 MG TABLET PO ONE (14:53)
== END 2019-09-14 14:55 | disposition home or self-care (01) ==
LOC: ER 14:09
DX: Z48.00 Encounter for change or removal of nonsurgical wound dressing (principal); I10 Essential (primary) hypertension; J44.9 Chronic obstructive pulmonary disease, unspecified; F17.210 Nicotine dependence, cigarettes, uncomplicated; Z88.2 Allergy status to sulfonamides; Z88.1 Allergy status to other antibiotic agents; Z91.018 Allergy to other foods
CPT/HCPCS: 99283

== ENCOUNTER 2021-04-18 21:13 | Observation (INO) | payer OTHER ==
[~2021-04-18] VITALS: Ht 157.5 cm; Wt 117.2 kg
--- NOTE | 2021-04-18 21:33 | PHYS DOC ---
Past History Past Medical History: Asthma, Bronchitis, Cancer, COPD, Hypertension Past Surgical History: Hysterectomy Additional Past Surgical Histo: "Cancer surgery" Smoking: Cigarettes Alcohol Use: None Drug Use: None Adult General Chief Complaint Chief Complaint: SHORTNESS OF BREATH HPI HPI Patient is a 55-year-old female with a past medical history significant for COPD, asthma and hypertension who presents to the emergency department with 3 to 4 days of increasing shortness of breath, cough and sputum production. States she is vaccinated for Covid. Denies any recent traumas, travels, illnesses, fevers, chest pain, abdominal pain, nausea, vomiting, diarrhea, dysuria, hematuria or blood in the stool. States he has been using her albuterol nebulizer at home but ran out this morning. States it did seem to help. Denies any known ill contacts. States she is still smoking. Review of Systems Review of Systems Review of systems otherwise unremarkable except noted in HPI Allergies Allergies Allergies Coded Allergies Type Severity Reaction Last Updated Verified sulfamethoxazole Allergy Severe Itching 07/16/18 Yes trimethoprim Allergy Severe Itching 07/16/18 Yes coconut Allergy Intermediate Itching 07/16/18 Yes Uncoded Allergies Type Severity Reaction Last Updated Verified cats Allergy Unknown 07/16/18 Physical Exam Physical Exam Constitutional: Well developed, well nourished, no acute distress, non-toxic appearance. [] HENT: Normocephalic, atraumatic, bilateral external ears normal, oropharynx moist, no oral exudates, nose normal. [] Eyes: conjunctiva normal, no discharge. [] Neck: Normal range of motion, no tenderness, supple, no stridor. [] Cardiovascular: Sinus tachycardia Lungs & Thorax: Bilateral, global rhonchi, with end expiratory wheeze and poor movement of air Abdomen: soft, no tenderness, no masses, no pulsatile masses. [] Skin: Warm, dry, no erythema, no rash. [] Back: no CVA tenderness. [] Extremities: No tenderness, no cyanosis, no clubbing, ROM intact, no edema. [] Neurologic: Alert and oriented X 3, no focal deficits noted. [] Psychologic: Affect normal, judgement normal, mood normal. [] EKG EKG [] Radiology/Procedures Radiology/Procedures [] Heart Score C/O Chest Pain: No Risk Factors: Risk Factors: DM, Current or recent (<one month) smoker, HTN, HLP, family histo ry of CAD, obesity. Risk Scores: Risk Factors: DM, Current or recent (<one month) smoker, HTN, HLP, family history of CAD, obesity. Course & Med Decision Making Course & Med Decision Making Patient is a 55-year-old female who presents with a chief complaint of shortness of breath and wheeze Vital signs notable for sinus tachycardia, tachypnea and hypoxia on room air placed on 6 L nasal cannula to get O2 saturation to 95% Given DuoNeb and steroids. Covid swab pending. Laboratory analysis notable for leukocytosis. Chest x-ray suggestive of pneumonia versus pulmonary edema. Discussed all findings with patient recommend admission to [facility] for continued evaluation and treatment. Patient grateful, verbalized understanding and agreed with plan of admission [] Dragon Disclaimer Dragon Disclaimer This electronic medical record was generated, in whole or in part, using a voice recognition dictation system. Departure Departure: Impression: Primary Impression: COPD exacerbation Additional Impression: Pneumonia Disposition: ADMITTED INPATIENT Admitting Physician: Romeo Hammonds Condition: IMPROVED Referrals: PCP,NO (PCP) Problem Qualifiers KAILEE BENZ MD Apr 18, 2021 21:33
[2021-04-18] MEDS ORDERED: IV RINGERS SOLUTION,LACTATED 1,000 ML IV ONE ×2 (21:45→23:45)
[2021-04-18] MEDS ORDERED: IPRATRPIUM/ALBUTEROL 0.5/2.5MG 3 ML NEBU. NEB ONE (21:45)
[2021-04-18] MEDS ORDERED: DEXAMETHASONE 4 MG TABLET PO ONE (21:45)
[2021-04-18 22:39] LABS: BASO % 0 % (0-3); EOS % 0 % (0-3); HEMATOCRIT 51.3 % (36.0-47.0); HEMOGLOBIN 16.5 g/dL (12.0-15.5); LYMPH # 3.1 x10^3/uL (1.0-4.8); LYMPH % 24 % (24-48); MEAN CORPUSCULAR HEMOGLOBIN 28 pg (25-35); MEAN CORPUSCULAR HGB CONC 32 g/dL (31-37); MEAN CORPUSCULAR VOLUME 88 fL (79-100); MONO # 0.9 x10^3/uL (0.0-1.1); MONO % 7 % (0-9); NEUT # 8.6 x10^3uL (1.8-7.7); NEUT % 68 % (31-73); PLATELET COUNT 141 x10^3/uL (140-400); RED BLOOD COUNT 5.84 x10^6/uL (3.50-5.40); WHITE BLOOD COUNT 12.6 x10^3/uL (4.0-11.0)
[2021-04-18] MEDS ORDERED: AZITHROMYCIN 250 MG TABLET. PO ONE (22:45)
[2021-04-18 22:54] LABS: CALCIUM 10.2 mg/dL (8.5-10.1); CREATININE 0.5 mg/dL (0.6-1.0); GFR 127.2
[2021-04-18 23:00] LABS: ALBUMIN 3.5 g/dL (3.4-5.0); ALBUMIN/GLOBULIN RATIO 0.9 (1.0-1.7); TOTAL BILIRUBIN 1.2 mg/dL (0.2-1.0); TOTAL PROTEIN 7.4 g/dL (6.4-8.2)
[2021-04-18 23:02] LABS: POTASSIUM 5.2 mmol/L (3.5-5.1)
--- NOTE | 2021-04-18 23:17 | RAD ---
Exam: Chest one view INDICATION: Shortness of breath TECHNIQUE: Frontal view of the chest Comparisons: 07/16/2018 FINDINGS: The cardiomediastinal silhouette and pulmonary vessels are within normal limits. Patchy bibasilar airspace disease. No pleural effusion IMPRESSION: Patchy bibasilar airspace disease may relate to edema or developing infectious process. Electronically signed by: Leif Salas MD (04/18/2021 11:14 PM) BHAVANI
[2021-04-18] MEDS ORDERED: IV NORMAL SALINE 50ML 50 ML ONE (23:42)
[2021-04-18] MEDS ORDERED: cefTRIAXone SODIUM 1 GM VIAL ONE (23:42)
[2021-04-18] MEDS ORDERED: ONDANSETRON PF 4 MG/2 ML VIAL. IVP PRN (23:45)
--- NOTE | 2021-04-18 23:50 | EKG ---
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
[2021-04-19 01:21] VITALS: BP 143/80
[2021-04-19] MEDS ORDERED: ALBU2.5V8 IH (04:27)
[2021-04-19] MEDS: ALBUTEROL SULFATE 2.5 MG/3 ML NEBU. NEB SCH ×2 (05:33→09:49)
[2021-04-19 06:00] VITALS: BP 146/79
[2021-04-19] MEDS ORDERED: methylPREDNISolone SOD SUCC PF 40 MG/ML VIAL. IV SCH (06:00)
[2021-04-19 07:55] LABS: BASO % 0 % (0-3); EOS % 0 % (0-3); HEMATOCRIT 47.4 % (36.0-47.0); LYMPH # 0.8 x10^3/uL (1.0-4.8); LYMPH % 8 % (24-48); MEAN CORPUSCULAR HEMOGLOBIN 28 pg (25-35); MEAN CORPUSCULAR HGB CONC 32 g/dL (31-37); MEAN CORPUSCULAR VOLUME 87 fL (79-100); MONO # 0.3 x10^3/uL (0.0-1.1); MONO % 3 % (0-9); NEUT # 8.8 x10^3uL (1.8-7.7); NEUT % 89 % (31-73); PLATELET COUNT 137 x10^3/uL (140-400); RED BLOOD COUNT 5.43 x10^6/uL (3.50-5.40); RED CELL DISTRIBUTION WIDTH 17.1 % (11.5-14.5); WHITE BLOOD COUNT 9.9 x10^3/uL (4.0-11.0)
[2021-04-19 07:58] LABS: CALCIUM 10.2 mg/dL (8.5-10.1); CREATININE 0.7 mg/dL (0.6-1.0); GFR 86.2; POTASSIUM 4.8 mmol/L (3.5-5.1)
[2021-04-19] MEDS ORDERED: CEPH500T PO (10:06)
[2021-04-19] MEDS ORDERED: PRED20TA PO (10:07)
--- NOTE | 2021-04-19 10:14 | HP ---
DATE OF SERVICE: 04/19/2021 ADMIT DATE: 04/18/2021 ATTENDING PHYSICIAN: Dr. Hammonds. CHIEF COMPLAINT: Shortness of breath. HISTORY OF PRESENT ILLNESS: The patient is a 55-year-old female, heavy smoker, admitted through the ED with a 3-day history of increasing shortness of breath, congestion and productive sputum production. She is morbidly obese. The initial chest x-ray showed questionable haziness at the bases. Pneumonia cannot be ruled out. She was started on antibiotics, corticosteroids and nebulizer therapy. She was better by the time I saw her the next morning. PAST MEDICAL HISTORY: Significant for asthma, bronchitis, supposed cancer surgery but she could not give me details, COPD, hypertension and continued tobacco use. She has had a previous hysterectomy. ALLERGIES: SHE HAS ALLERGIES TO CAT DANDER, COCONUT, SULFA DRUGS AND TRIMETHOPRIM, EXACT REACTION IS UNCLEAR. CURRENT MEDICINES: She does have a nebulizer, was taking albuterol. She was not on any other prescription meds. She does not have a local primary care physician. SOCIAL HISTORY: She is a smoker as noted, no alcohol use. FAMILY HISTORY: Noncontributory. REVIEW OF SYSTEMS: Significant for the increase in shortness of breath, dyspnea. She was given supplemental oxygen. All other systems reviewed and turned out to be negative. She has had her COVID vaccinations. PHYSICAL EXAMINATION: GENERAL: When I saw her, this is a chronically ill-appearing female, but she was doing better by the time I saw her. VITAL SIGNS: Initial vital signs showed a blood pressure of 146/79. Her pulse is 71 and regular. She was afebrile. Oxygen saturation 98% on 3 liters. She was at 91% on room air. HEENT: Head is without trauma. Pupils are reactive. Sclerae nonicteric. Oropharynx clear. NECK: Supple, no bruits. LUNGS: Faint wheezing, but improved. She is moving air well. CARDIOVASCULAR: Showed distant heart tones. No gallops. ABDOMEN: Morbidly obese. No guarding. EXTREMITIES: Show trace edema. NEUROLOGIC: Function focally intact. Speech is fluent. SKIN: Warm and dry. PERTINENT LABORATORY STUDIES: The admission hemoglobin was 16.5 g/dL; white count 12,000, repeated was down to 9900. Electrolytes showed a sodium 141, potassium 4.8 mEq, creatinine 0.7. Nonfasting blood sugar 212. Transaminases were normal. Troponin was nonischemic. INITIAL IMAGING STUDIES: Showed patchy bibasilar airspace disease, but ____, this may be an overread. There are no pleural effusions identified. ASSESSMENT: 1. A 55-year-old female with acute on chronic respiratory failure. 2. Exacerbation of chronic obstructive pulmonary disease. 3. Bronchitis and possible early pneumonia. PLAN: 1. Admission to the hospital. 2. IV antibiotics. 3. Corticosteroid therapy. 4. Nebulizer therapy. 5. Continue antibiotics as ordered. VANESSA/ANDREIA DR: Belkis TID: [id number]
--- NOTE | 2021-04-19 10:52 | DS ---
DATE OF DISCHARGE: 04/19/2021 ATTENDING PHYSICIAN: Dr. Hammonds. FINAL DISCHARGE DIAGNOSES: 1. Exacerbation of chronic obstructive pulmonary disease. 2. Early bronchitis with questionable pneumonia at the bases. 3. Tobacco addiction. 4. Longstanding history of chronic obstructive pulmonary disease. HISTORY AND PHYSICAL: The patient is a 55-year-old female, fairly active, heavy smoker, admitted to the ED with increasing shortness of breath. Chest x-ray showed questionable evidence of infiltrate in the bases whether this is an overread due to her girth remains to be seen. She responded well to antibiotics, steroids and nebulizer therapy. PHYSICAL EXAMINATION: Please see the dictated note. PERTINENT LABORATORY AND X-RAY STUDIES: Chest x-ray as noted. Hemoglobin was 15.0 g/dL, white count 9900. Electrolytes within normal range. Transaminases were normal. Cardiac enzymes negative. COURSE IN THE HOSPITAL: The patient was admitted. She was started on nebulizer therapy, antibiotics and corticosteroids. By the time I saw her early the next morning, she was doing better. Her breathing was improved, though she was moving air well and her oxygen saturation was 91% on room air. She wanted to go home. I felt this is reasonable. Strong encouragement to avoid further tobacco use, whether or not she will quit smoking remains to be seen. I felt it was safe for her to go home even if she does have early pneumonia. I recommended 7 more days of cephalexin 500 mg p.o. t.i.d., albuterol inhaler 2 puffs q.i.d. and prednisone 60 mg daily for 7 days and stop. Strong encouragement to find a PCP for further followup. She was discharged then from our hospital in stable condition with explicit drug and followup care. CECI CHEW: Belkis TID: [id number]
== END 2021-04-19 10:30 | disposition home or self-care (01) ==
LOC: ER 21:13 → INTOOBSV 23:43 → 1 SOUTH 23:43
PROVIDERS: ADMIT Hospitalist; ATTEND Hospitalist
DX: J96.20 Acute and chronic respiratory failure, unspecified whether with hypoxia or hypercapnia (principal); Z20.822 Contact with and (suspected) exposure to COVID-19; J44.1 Chronic obstructive pulmonary disease with (acute) exacerbation; J40 Bronchitis, not specified as acute or chronic; I10 Essential (primary) hypertension; J18.9 Pneumonia, unspecified organism; E66.01 Morbid (severe) obesity due to excess calories; F17.200 Nicotine dependence, unspecified, uncomplicated; Z90.710 Acquired absence of both cervix and uterus; Z79.899 Other long term (current) drug therapy; Z98.890 Other specified postprocedural states; Z68.42 Body mass index [BMI] 45.0-49.9, adult
CPT/HCPCS: 36415; 71045; 80048; 80053; 83735; 84484; 85025; 85610; 85730; 87426; 93005; 94640; 96365; 96375; 99285; G0378; J0696; J2920; J7120; J7613; J8540; U0003; 96360; G0379

== ENCOUNTER 2021-04-26 13:31 | Emergency (ER) | payer OTHER ==
[~2021-04-26] VITALS: Ht 157.5 cm; Wt 115.8 kg
[~2021-04-26 13:31] MED LIST changes: +ALBU2.5V8 IH; +CEPH500T PO; +PRED20TA PO
--- NOTE | 2021-04-26 14:25 | PHYS DOC ---
Past History Past Medical History: Asthma, Bronchitis, Cancer, COPD, Hypertension Additional Past Medical Histor: cervical cancer Past Surgical History: Cancer Surgery, Hysterectomy, Tonsillectomy Additional Past Surgical Histo: "Cancer surgery" Smoking: Cigarettes Additional Smoking Information: 1/2 PACK Alcohol Use: None Drug Use: None Adult General Chief Complaint Chief Complaint: SHORTNESS OF BREATH HPI HPI Patient is a 55-year-old female presenting for shortness of breath. This is an acute on chronic issue. She was recently hospitalized and subsequently discharged for pneumonia at our facility 1 week ago. States since then, she has been taking ciprofloxacin and steroids which she was prescribed on discharge, she is on day 7 for both medications. 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 She states she has had new onset of upper respiratory symptoms such as eye watering, worsened rhinorrhea and postnasal drip prompting her to get tested at local urgent care where she was rapid COVID-19 test positive. This, coupled with the fact that she was hypoxic on room air prompted them to refer patient to our facility for further evaluation. On arrival to our ER, patient complains of continued shortness of breath and wheezing. She states that she only has an albuterol inhaler at home, no other maintenance medications or nebulizers because she states her [facility]oc does not prescribe her anything more. She admits ongoing tobacco abuse, no alcohol or illicit drugs. She admits she is fully vaccinated against COVID-19 Review of Systems Review of Systems Fourteen body systems of review of systems have been reviewed. See HPI for pertinent positives and negative responses, other wills all other systems are negative, non-pertinent or non-contributory Allergies Allergies Allergies Coded Allergies Type Severity Reaction Last Updated Verified sulfamethoxazole Allergy Severe Itching 07/16/18 Yes trimethoprim Allergy Severe Itching 07/16/18 Yes cat dander Allergy Intermediate 04/18/21 Yes coconut Allergy Intermediate Itching 07/16/18 Yes Physical Exam Physical Exam Constitutional: Well developed, well nourished, no acute distress, non-toxic appearance. HENT: Normocephalic, atraumatic, bilateral external ears normal, oropharynx moist, no oral exudates, nose normal. Eyes: PERRLA, EOMI, conjunctiva normal, no discharge. Neck: Normal range of motion, no tenderness, supple, no stridor. Cardiovascular: Heart rate regular, sinus rhythm, no murmurs rubs or gallops Lungs & Thorax: Increased work of breathing, using accessory muscles and neck, hypoxic with baseline saturations 89% on room air while at rest, gross rhonchi present most concentrated in bilateral lower lobes Abdomen: Bowel sounds normal, soft, no tenderness, no masses, no pulsatile masses. Nonsurgical abdomen, no peritoneal signs Skin: Warm, dry, no erythema, no rash. Back: No tenderness, no CVA tenderness. Extremities: No tenderness, no cyanosis, no clubbing, ROM intact, no edema. Neurologic: Alert and oriented X 3, grossly normal motor & sensory function, no focal deficits noted. Psychologic: Affect normal, judgement normal, mood normal. Current Patient Data Vital Signs Vital Signs Date Time Temp Pulse Resp B/P (MAP) Pulse Ox O2 Delivery O2 Flow Rate FiO2 04/26/21 13:40 98.7 96 24 165/85 (111) 92 Room Air Lab Results Laboratory Tests Test 04/26/21 14:20 04/26/21 14:45 04/26/21 15:50 White Blood Count 8.0 x10^3/uL Red Blood Count 5.63 x10^6/uL Hemoglobin 15.7 g/dL Hematocrit 48.6 % Mean Corpuscular Volume 86 fL Mean Corpuscular Hemoglobin 28 pg Mean Corpuscular Hemoglobin Concent 32 g/dL Red Cell Distribution Width 17.1 % Platelet Count 177 x10^3/uL Neutrophils (%) (Auto) 65 % Lymphocytes (%) (Auto) 21 % Monocytes (%) (Auto) 13 % Eosinophils (%) (Auto) 1 % Basophils (%) (Auto) 0 % Neutrophils # (Auto) 5.2 x10^3uL Lymphocytes # (Auto) 1.6 x10^3/uL Monocytes # (Auto) 1.1 x10^3/uL Eosinophils # (Auto) 0.1 x10^3/uL Basophils # (Auto) 0.0 x10^3/uL Sodium Level 144 mmol/L Potassium Level 3.5 mmol/L Chloride Level 106 mmol/L Carbon Dioxide Level 32 mmol/L Anion Gap 6 Blood Urea Nitrogen 20 mg/dL Creatinine 0.9 mg/dL Estimated GFR (Cockcroft-Gault) 64.5 BUN/Creatinine Ratio 22 Glucose Level 117 mg/dL Lactic Acid Level 1.2 mmol/L Calcium Level 9.6 mg/dL Total Bilirubin 0.3 mg/dL Aspartate Amino Transf (AST/SGOT) 17 U/L Alanine Aminotransferase (ALT/SGPT) 26 U/L Alkaline Phosphatase 97 U/L Troponin I High Sensitivity 14 ng/L Total Protein 6.4 g/dL Albumin 2.8 g/dL Albumin/Globulin Ratio 0.8 Bedside Venous pH 7.41 Bedside Venous pCO2 55 mmHg Bedside Venous pO2 67 mmHg Venous Blood HCO3 35 mmol/L POC Venous O2 Saturation (Alee) 93 % Bedside FiO2 28 Urine Collection Type Clean catch Urine Color Yellow Urine Clarity Clear Urine pH 5.5 Urine Specific Sarah 1.015 Urine Protein Neg Urine Glucose (UA) Neg mg/dL Urine Ketones (Stick) Neg mg/dL Urine Blood Neg Urine Nitrite Neg Urine Bilirubin Neg Urine Urobilinogen Dipstick 0.2 mg/dL Urine Leukocyte Esterase Neg Urine RBC 0 /HPF Urine WBC 0 /HPF Urine Bacteria 0 /HPF Current Medications Medications (Trade) Dose Ordered Sig/Jhonathan Route PRN Reason Start Time Stop Time Status Last Admin Dose Admin Sodium Chloride 1,000 ml @ 1,000 mls/hr 1X ONCE IV 04/26/21 14:30 04/26/21 15:29 DC 04/26/21 15:03 Aspirin (Aspirin Chewable) 324 mg 1X ONCE PO 04/26/21 14:30 04/26/21 14:31 DC 04/26/21 15:06 Dexamethasone Sodium Phosphate (Decadron) 10 mg 1X ONCE IV 04/26/21 14:30 04/26/21 14:31 DC 04/26/21 15:05 Budesonide (Pulmicort) 0.5 mg 1X ONCE NEB 04/26/21 14:30 04/26/21 14:31 DC 04/26/21 14:40 Albuterol Sulfate (Ventolin) 2.5 mg 1X ONCE NEB 04/26/21 14:30 04/26/21 14:31 DC 04/26/21 14:39 Enoxaparin Sodium (Lovenox 120mg Syringe) 120 mg 1X ONCE SQ 04/26/21 14:30 04/26/21 15:15 DC Iohexol (Omnipaque 350 Mg/ml) 100 ml 1X ONCE IV 04/26/21 14:30 04/26/21 14:31 DC 04/26/21 14:48 Info (Do NOT chart on this entry -- for MONITORING) 1 each PRN DAILY PRN MC SEE COMMENTS 04/26/21 14:30 04/28/21 14:29 EKG EKG EKG ordered and interpreted by myself at 1440 hrs. is sinus rhythm at 91 bpm, unremarkable intervals, no axis deviation, no acute ischemic findings, no STEMI Radiology/Procedures Radiology/Procedures Examination: CT angiography chest with IV contrast HISTORY: History of shortness of breath, hypoxia, Covid Positive COMPARISON: None available TECHNIQUE: Axial CT angiographic images of chest were performed without contrast. Coronal and sagittal 3-D MIP reformats are performed. Exposure: One or more of the following individualized dose reduction techniques were utilized for this examination: 1. Automated exposure control 2. Adjustment of the mA and/or kV according to patient size 3. Use of iterative reconstruction technique FINDINGS: The central airways are patent. Mild cardiomegaly. Caliber of the aorta grossly appears unremarkable. There is no evidence of filling defect identified in the main pulmonary arterial trunk and right and left main pulmonary arteries and the visualized lobar, segmental or minimal airspace. Mild enlarged bilateral hilar lymph nodes with the largest measuring 2.3 cm in the right. There is focal infiltrate identified in the right lower lobe of the lung measuring 2 cm. There are patchy groundglass airspace opacities left lower lobe of the lung. No evidence patchy airspace opacities left lower lobe of the lung. 4 mm nodule r ight middle lobe of the lung. Mild decreased attenuation noted in the liver likely hepatic steatosis. The spleen, adrenals grossly appears unremarkable. Mild degenerative changes thoracic spine. IMPRESSION: 1. No evidence of pulmonary embolism. 2. Focal 2 cm infiltrate right lower lobe of the lung. Patchy groundglass airspace opacities identified in the left lower lobe of the lung likely pneumonia or covid pneumonia. Follow-up to resolution. 3. Mild enlarged bilateral hilar lymph nodes, nonspecific, probably reactive. 4. 4 mm nodule right middle lobe of the lung. Follow-up per Fleischner Society guidelines with follow-up CT in 6-12 months.. 5. Hepatic steatosis. Electronically signed by: Toney Pablo MD (04/26/2021 3:16 PM) [id number] Heart Score C/O Chest Pain: No HEART Score for Chest Pain: HEART Score for Chest Pain Response (Comments) Value History Slighlty/Non-Suspicious 0 ECG Normal 0 Age >45 - < 65 1 Risk Factors 1 or 2 Risk Factors 1 Troponin < Normal Limit 0 Total 2 Risk Factors: Risk Factors: DM, Current or recent (<one month) smoker, HTN, HLP, family history of CAD, obesity. Risk Scores: Risk Factors: DM, Current or recent (<one month) smoker, HTN, HLP, family history of CAD, obesity. Course & Med Decision Making Course & Med Decision Making Airway patent, breathing labored, IV access and vitals obtained concerning for h ypoxia worsened with physical exertion on room air in a patient who is typically not oxygen dependent HPI physical exam and comprehensive ER work-up grossly nonconcerning for any emergent or surgical issues. With that said, patient is known Covid positive her rapid test today and requiring 2 L oxygen via nasal cannula to keep sats greater than 90% She is unfit for discharge home. She has poor outpatient access to care and I fear her ability to provide effective supportive care and home environment especially given her fragile condition As such, I attempted to admit patient to [facility] but they were full. I then attempted [facility], [place] and [facility] all of which were at full capacity. [facility] contacted and patient ultimately accepted for transfer to [facility] I updated patient on entirety of ER findings, need for hospital transfer and dis cussions with other hospitals with proposed plan of care to be admitted to [facility], she was amenable. All questions and concerns addressed prior to EMS transfer Dragon Disclaimer Dragon Disclaimer This electronic medical record was generated, in whole or in part, using a voice recognition dictation system. Departure Departure: Impression: Primary Impression: Acute respiratory failure due to COVID-19 Additional Impression: COPD (chronic obstructive pulmonary disease) Disposition: 02 [facility] ([facility]) Admitting Physician: Other (XIAO) Condition: STABLE (ERASED) Referrals: PCP,NO (PCP) Problem Qualifiers VALENTE LALA DO Apr 26, 2021 14:25
[2021-04-26] MEDS ORDERED: BUDESONIDE 0.5 MG/2 ML NEBU NEB ONE (14:30)
[2021-04-26] MEDS ORDERED: ENOXAPARIN ** NOTE DOSE ** SYRINGE SQ ONE (14:30)
[2021-04-26] MEDS ORDERED: IV NORMAL SALINE 1,000ML 1,000 ML IV ONE (14:30)
[2021-04-26] MEDS ORDERED: ALBUTEROL SULFATE 2.5 MG/3 ML NEBU. NEB ONE (14:30)
[2021-04-26] MEDS ORDERED: DEXAMETHASONE SOD PHOS 10 MG/ML VIAL. IV ONE (14:30)
[2021-04-26] MEDS ORDERED: IOHEXOL 350 MG/ML 100 ML VIAL. IV ONE (14:30)
[2021-04-26] MEDS ORDERED: CONTRAST GIVEN. MC PRN (14:30)
[2021-04-26] MEDS ORDERED: ASPIRIN CHEWABLE 81 MG TABLET. PO ONE (14:30)
[2021-04-26 15:02] LABS: BASO % 0 % (0-3); EOS # 0.1 x10^3/uL (0.0-0.7); EOS % 1 % (0-3); HEMATOCRIT 48.6 % (36.0-47.0); HEMOGLOBIN 15.7 g/dL (12.0-15.5); LYMPH # 1.6 x10^3/uL (1.0-4.8); LYMPH % 21 % (24-48); MEAN CORPUSCULAR HEMOGLOBIN 28 pg (25-35); MEAN CORPUSCULAR HGB CONC 32 g/dL (31-37); MEAN CORPUSCULAR VOLUME 86 fL (79-100); MONO # 1.1 x10^3/uL (0.0-1.1); MONO % 13 % (0-9); NEUT # 5.2 x10^3uL (1.8-7.7); NEUT % 65 % (31-73); PLATELET COUNT 177 x10^3/uL (140-400); RED BLOOD COUNT 5.63 x10^6/uL (3.50-5.40); RED CELL DISTRIBUTION WIDTH 17.1 % (11.5-14.5)
--- NOTE | 2021-04-26 15:06 | EKG ---
[address] [address] Test Date: 2021-04-26 Test Time: 14:35:32 Pat Name: GILBERTO MILLER Department: Room: Gender: F Player Development Manager: VERONIKA : 1965 Requested By: VALENTE LALA Order Number: [id number] Reading MD: Dc Mai MD Measurements Intervals [place] Rate: 91 P: 61 MO: 130 QRS: 31 QRSD: 82 T: 68 QT: 358 QTc: 442 Interpretive Statements SINUS RHYTHM Electronically Signed On 04-27-2021 20:35:10 BUDGET ENGINEER by Dc Mai MD
--- NOTE | 2021-04-26 15:18 | RAD ---
Examination: CT angiography chest with IV contrast HISTORY: History of shortness of breath, hypoxia, Covid Positive COMPARISON: None available TECHNIQUE: Axial CT angiographic images of chest were performed without contrast. Coronal and sagitta l 3-D MIP reformats are performed. Exposure: One or more of the following individualized dose reduction techniques were utilized for thi s examination: 1. Automated exposure control 2. Adjustment of the mA and/or kV according to patient size 3. Use of iterative reconstruction technique FINDINGS: The central airways are patent. Mild cardiomegaly. Caliber of the aorta grossly appears unremarkable. There is no evidence of filling defect identified in the main pulmonary arterial trunk and right and left main pulmonary arteries and the visualized lobar, segmental or minimal airspace. Mild enlarged bilateral hilar lymph nodes with the largest measuring 2.3 cm in the right. There is focal infiltrate identified in the right lower lobe of the lung measuring 2 cm. There are patchy groundglass airspace opacities left lower lobe of the lung. No evidence patchy airspace opacities left lower lobe of the lung. 4 mm nodule right middle lobe of the lung. Mild decreased attenuation noted in the liver likely hepatic steatosis. The spleen, adrenals grossly appears unremarkable. Mild degenerative changes thor acic spine. IMPRESSION: 1. No evidence of pulmonary embolism. 2. Focal 2 cm infiltrate right lower lobe of the lung. Patchy groundglass airspace opacities identif ied in the left lower lobe of the lung likely pneumonia or covid pneumonia. Follow-up to resolution. 3. Mild enlarged bilateral hilar lymph nodes, nonspecific, probably reactive. 4. 4 mm nodule right middle lobe of the lung. Follow-up per Fleischner Society guidelines with follo w-up CT in 6-12 months.. 5. Hepatic steatosis. Electronically signed by: Toney Pablo MD (04/26/2021 3:16 PM) [id number]
[2021-04-26 15:21] LABS: CALCIUM 9.6 mg/dL (8.5-10.1); CREATININE 0.9 mg/dL (0.6-1.0); GFR 64.5; POTASSIUM 3.5 mmol/L (3.5-5.1)
[2021-04-26 15:27] LABS: ALBUMIN 2.8 g/dL (3.4-5.0); ALBUMIN/GLOBULIN RATIO 0.8 (1.0-1.7); TOTAL BILIRUBIN 0.3 mg/dL (0.2-1.0); TOTAL PROTEIN 6.4 g/dL (6.4-8.2)
[2021-04-26 16:35] LABS: BILIRUBIN,URINE NEG (NEG); CLARITY,URINE CLEAR; COLOR,URINE YELLOW; GLUCOSE,URINE NEG (NEG); NITRITE,URINE NEG (NEG); UROBILINOGEN,URINE 0.2 mg/dL (0.2 mg/dL)
[2021-04-26 16:36] LABS: BACTERIA,URINE 0 /HPF (0-FEW); RBC,URINE 0 /HPF (0-2); WBC,URINE 0 /HPF (0-4)
[2021-04-26 17:12] VITALS: BP 151/88
== END 2021-04-26 18:10 | disposition short-term general hospital (02) ==
LOC: ER 13:31
DX: U07.1 COVID-19 (principal); J96.00 Acute respiratory failure, unspecified whether with hypoxia or hypercapnia; J44.9 Chronic obstructive pulmonary disease, unspecified; I10 Essential (primary) hypertension; F17.210 Nicotine dependence, cigarettes, uncomplicated; Z88.2 Allergy status to sulfonamides; Z88.1 Allergy status to other antibiotic agents; Z91.018 Allergy to other foods; Z88.8 Allergy status to other drugs, medicaments and biological substances
CPT/HCPCS: 36415; 71275; 80053; 81001; 82803; 83605; 84484; 85025; 87040; 93005; 94640; 96361; 96374; 99285; J1100; J7030; J7613; Q9967

== ENCOUNTER 2021-10-20 12:53 | Observation (INO) | payer OTHER ==
[~2021-10-20] VITALS: Ht 157.5 cm; Wt 111.3 kg
[2021-10-20] MEDS ORDERED: ALBUTEROL SULFATE 2.5 MG/3 ML NEBU. NEB ONE (14:00)
--- NOTE | 2021-10-20 14:03 | PHYS DOC ---
Past History Past Medical History: Asthma, Bronchitis, Cancer, COPD, Hypertension Additional Past Medical Histor: cervical cancer, plurisy Past Surgical History: Cancer Surgery, Hysterectomy, Tonsillectomy Additional Past Surgical Histo: "Cancer surgery" Smoking: Cigarettes Alcohol Use: None Drug Use: None Adult General Chief Complaint Chief Complaint: SHORTNESS OF BREATH HPI HPI Patient is a 56 year old female who presents with complaint of shortness of breath. The patient has history of COPD and is an active smoker. The patient notes that over the past 5 days she started having worsening symptoms of congestion and cough, however her symptoms began to worsen the shortness of breath and chest tightness within the last 2 days. Denies any associated fever. Cough is productive of whitish sputum which she states is common for her with her COPD. States that she started having pain along the right side in her ribs within the last day. Denies abdominal pain, vomiting, or diarrhea. Patient called EMS due to worsening symptoms and was found to be hypoxic with an O2 sat of 87% and was placed on nasal cannula. States she does not normally wear oxy gen at home. Review of Systems Review of Systems Constitutional: Denies fever or chills [] Eyes: Denies change in visual acuity, redness, or eye pain [] HENT: Denies nasal congestion or sore throat [] Respiratory: Shortness of breath, cough [] Cardiovascular: Denies chest pain or edema [] GI: Denies abdominal pain, nausea, vomiting, bloody stools or diarrhea [] : Denies dysuria or hematuria [] Musculoskeletal: Right-sided rib pain, denies back or joint pain [] Integument: Denies rash or skin lesions [] Neurologic: Denies headache, focal weakness or sensory changes [] All other systems were reviewed and found to be within normal limits, except as documented in this note. Allergies Allergies Allergies Coded Allergies Type Severity Reaction Last Updated Verified sulfamethoxazole Allergy Severe Itching 07/16/18 Yes trimethoprim Allergy Severe Itching 07/16/18 Yes cat dander Allergy Intermediate 04/18/21 Yes coconut Allergy Intermediate Itching 07/16/18 Yes Physical Exam Physical Exam Constitutional: Alert, afebrile, appears in moderate respiratory distress. [] HENT: Normocephalic, atraumatic, bilateral external ears normal, oropharynx moist, no oral exudates, nose normal. [] Eyes: PERRLA, EOMI, conjunctiva normal, no discharge. [] Neck: Normal range of motion, no tenderness, supple, no stridor. [] Cardiovascular:Heart rate regular rhythm, no murmur [] Lungs & Thorax: Prolonged expiratory phase, expiratory wheezes bilaterally, no rales [] Abdomen: Bowel sounds normal, soft, no tenderness, no masses, no pulsatile masses. [] Skin: Warm, dry, no erythema, no rash. [] Back: No tenderness, no CVA tenderness. [] Extremities: No tenderness, no cyanosis, no clubbing, ROM intact, no edema. [] Neurologic: Alert and oriented X 3, normal motor function, normal sensory function, no focal deficits noted. [] Current Patient Data Vital Signs Vital Signs Date Time Temp Pulse Resp B/P (MAP) Pulse Ox O2 Delivery O2 Flow Rate FiO2 10/20/21 13:31 92 Nasal Cannula 4.0 10/20/21 13:31 0.36 10/20/21 13:14 98.3 84 18 155/73 (100) Lab Results Laboratory Tests Test 10/20/21 14:15 10/20/21 14:18 White Blood Count 14.1 x10^3/uL Red Blood Count 5.80 x10^6/uL Hemoglobin 16.1 g/dL Hematocrit 49.5 % Mean Corpuscular Volume 85 fL Mean Corpuscular Hemoglobin 28 pg Mean Corpuscular Hemoglobin Concent 33 g/dL Red Cell Distribution Width 15.5 % Platelet Count 146 x10^3/uL Neutrophils (%) (Auto) 79 % Lymphocytes (%) (Auto) 13 % Monocytes (%) (Auto) 7 % Eosinophils (%) (Auto) 0 % Basophils (%) (Auto) 0 % Neutrophils # (Auto) 11.2 x10^3uL Lymphocytes # (Auto) 1.8 x10^3/uL Monocytes # (Auto) 1.0 x10^3/uL Eosinophils # (Auto) 0.0 x10^3/uL Basophils # (Auto) 0.0 x10^3/uL Sodium Level 137 mmol/L Potassium Level 4.4 mmol/L Chloride Level 103 mmol/L Carbon Dioxide Level 30 mmol/L Anion Gap 4 Blood Urea Nitrogen 16 mg/dL Creatinine 0.9 mg/dL Estimated GFR (Cockcroft-Gault) 64.3 BUN/Creatinine Ratio 18 Glucose Level 113 mg/dL Calcium Level 10.4 mg/dL Total Bilirubin 1.1 mg/dL Aspartate Amino Transf (AST/SGOT) 14 U/L Alanine Aminotransferase (ALT/SGPT) 20 U/L Alkaline Phosphatase 112 U/L Troponin I High Sensitivity 10 ng/L AA-[id number]-Type Natriuretic Peptide 247 pg/mL Total Protein 6.3 g/dL Albumin 3.1 g/dL Albumin/Globulin Ratio 1.0 Influenza Type A (Rapid) Negative Influenza Type B (Rapid) Negative SARS-CoV-2 Antigen (Rapid) Negative Current Medications Medications (Trade) Dose Ordered Sig/Jhonathan Route PRN Reason Start Time Stop Time Status Last Admin Dose Admin Albuterol Sulfate (Ventolin) 5 mg 1X ONCE NEB 10/20/21 14:00 10/20/21 14:07 DC 10/20/21 14:00 EKG EKG Interpreted by me: Heart rate 86, sinus rhythm, normal intervals, normal axis, no acute ST/T wave abnormalities present [] Radiology/Procedures Radiology/[place] [address] IMAGING REPORT Signed PATIENT: GILBERTO MILLER ACCOUNT: [id number] : 1965 LOCATION: ER AGE: 56 SEX: F EXAM STATUS: REG ER ORD. PHYSICIAN: HALIE MONTGOMERY MD REASON: shortness of breath PROCEDURE: PORTABLE CHEST 1V XR CHEST 1V History: Reason: shortness of breath / Spl. Instructions: / History: Comparison: April 18, 2021 Findings: No consolidation or pleural effusion. Low lung volumes. Enlarged cardiac size likely related to portable technique and low lung volumes. Impression: 1. Low lung volumes. Electronically signed by: Anand Ritchie DO (10/20/2021 2:41 PM) [facility] DICTATED AND SIGNED BY: ANAND RITCHIE DO DATE: 10/20/21 [id number] CC: HALIE MONTGOMERY MD; PCP,NO ~ [] Heart Score C/O Chest Pain: No Risk Factors: Risk Factors: DM, Current or recent (<one month) smoker, HTN, HLP, family history of CAD, obesity. Risk Scores: Risk Factors: DM, Current or recent (<one month) smoker, HTN, HLP, family history of CAD, obesity. Course & Med Decision Making Course & Med Decision Making Pertinent Labs and Imaging studies reviewed. (See chart for details) Patient was given DuoNeb in route by EMS and was given additional 2 unit doses of albuterol and 125 mg of IV Solu-Medrol. Chest x-ray shows no evidence of pneumonia. Despite treatments, patient requires supplemental oxygen to maintain O2 sats above 91% at this time. Patient thus will be admitted to the hospital for COPD exacerbation and acute on chronic respiratory failure. I spoke with Dr. Hammonds, hospitalist, who has agreed to accept care of patient in hospital for further care. [] Dragon Disclaimer Dragon Disclaimer This electronic medical record was generated, in whole or in part, using a voice recognition dictation system. Departure Departure: Impression: Primary Impression: Acute and chronic respiratory failure with hypoxia Additional Impression: COPD exacerbation Disposition: ADMITTED INPATIENT Admitting Physician: Romeo Hammonds Condition: STABLE Referrals: PCP,NO (PCP) Problem Qualifiers HALIE MONTGOMERY MD October 20, 2021 14:03
[2021-10-20 14:38] LABS: BASO % 0 % (0-3); EOS % 0 % (0-3); HEMATOCRIT 49.5 % (36.0-47.0); HEMOGLOBIN 16.1 g/dL (12.0-15.5); LYMPH # 1.8 x10^3/uL (1.0-4.8); LYMPH % 13 % (24-48); MEAN CORPUSCULAR HEMOGLOBIN 28 pg (25-35); MEAN CORPUSCULAR HGB CONC 33 g/dL (31-37); MEAN CORPUSCULAR VOLUME 85 fL (79-100); MONO % 7 % (0-9); NEUT # 11.2 x10^3uL (1.8-7.7); NEUT % 79 % (31-73); PLATELET COUNT 146 x10^3/uL (140-400); RED CELL DISTRIBUTION WIDTH 15.5 % (11.5-14.5); WHITE BLOOD COUNT 14.1 x10^3/uL (4.0-11.0)
--- NOTE | 2021-10-20 14:44 | RAD ---
XR CHEST 1V History: Reason: shortness of breath / Spl. Instructions: / History: Comparison: April 18, 2021 Findings: No consolidation or pleural effusion. Low lung volumes. Enlarged cardiac size likely related to julio ble technique and low lung volumes. Impression: 1. Low lung volumes. Electronically signed by: Anand Ritchie DO (10/20/2021 2:41 PM) [facility] [place]
[2021-10-20 14:48] LABS: CALCIUM 10.4 mg/dL (8.5-10.1); CREATININE 0.9 mg/dL (0.6-1.0); GFR 64.3; POTASSIUM 4.4 mmol/L (3.5-5.1)
[2021-10-20 14:54] LABS: INFLUENZA A PATIENT NEGATIVE (NEGATIVE); INFLUENZA B PATIENT NEGATIVE (NEGATIVE)
[2021-10-20 15:01] LABS: ALBUMIN 3.1 g/dL (3.4-5.0); TOTAL BILIRUBIN 1.1 mg/dL (0.2-1.0); TOTAL PROTEIN 6.3 g/dL (6.4-8.2)
[2021-10-20] MEDS ORDERED: ONDANSETRON PF 4 MG/2 ML VIAL. IVP PRN (15:45)
[2021-10-20] MEDS: ACETAMINOPHEN 325 MG TABLET PO PRN ×2 (18:07→23:23)
[2021-10-20] MEDS: IV NORMAL SALINE 1,000ML 1,000 ML IV SCH ×2 (18:08→23:40)
[2021-10-20 19:00] VITALS: BP 151/85
[2021-10-20] MEDS: ALBUTEROL SULFATE 2.5 MG/3 ML NEBU. NEB PRN (21:26)
[2021-10-20 23:00] VITALS: BP 113/51
[2021-10-20] MEDS: methylPREDNISolone SOD SUCC PF 125 MG/2 ML VIAL. IV SCH (23:09)
[2021-10-21 05:00] VITALS: BP 125/70
[2021-10-21] MEDS: ALBUTEROL SULFATE 2.5 MG/3 ML NEBU. NEB PRN (05:33)
[2021-10-21] MEDS: methylPREDNISolone SOD SUCC PF 125 MG/2 ML VIAL. IV SCH (06:00)
[2021-10-21 06:09] LABS: BASO % 0 % (0-3); EOS % 0 % (0-3); HEMATOCRIT 49.6 % (36.0-47.0); HEMOGLOBIN 15.9 g/dL (12.0-15.5); LYMPH # 0.7 x10^3/uL (1.0-4.8); LYMPH % 6 % (24-48); MEAN CORPUSCULAR HEMOGLOBIN 28 pg (25-35); MEAN CORPUSCULAR HGB CONC 32 g/dL (31-37); MEAN CORPUSCULAR VOLUME 87 fL (79-100); MONO # 0.2 x10^3/uL (0.0-1.1); MONO % 1 % (0-9); NEUT # 11.1 x10^3uL (1.8-7.7); NEUT % 92 % (31-73); PLATELET COUNT 154 x10^3/uL (140-400); RED BLOOD COUNT 5.73 x10^6/uL (3.50-5.40); RED CELL DISTRIBUTION WIDTH 15.4 % (11.5-14.5)
[2021-10-21 06:20] LABS: CALCIUM 10.7 mg/dL (8.5-10.1); CREATININE 0.8 mg/dL (0.6-1.0); GFR 73.7; POTASSIUM 4.8 mmol/L (3.5-5.1)
[2021-10-21] MEDS: IV NORMAL SALINE 1,000ML 1,000 ML IV SCH (07:45)
--- NOTE | 2021-10-21 10:58 | HP ---
DATE OF SERVICE: 10/21/2021 ADMIT DATE: 10/20/2021 ATTENDING PHYSICIAN: Dr. Hammonds. CHIEF COMPLAINT: Shortness of breath. HISTORY OF PRESENT ILLNESS: This is a 56-year-old female admitted through the ED with increasing wheezing and shortness of breath. She is an active smoker, ____ packs of cigarettes daily. Workup in the ED showed the chest x-ray to be clear. There is no acute infiltrate. She was given Solu-Medrol, supplemental oxygen. Oxygen saturations were marginal. She was admitted for further treatment and evaluation. PAST MEDICAL HISTORY: Significant for COPD, chronic bronchitis, asthma, essential hypertension. She has also had cervical cancer. She has had a previous hysterectomy and tonsillectomy. ALLERGIES: She has allergies to CAT DANDER, COCONUT, SULFA DRUGS AND TRIMETHOPRIM. SOCIAL HISTORY: She is a smoker, nondrinker. FAMILY HISTORY: Noncontributory. REVIEW OF SYSTEMS: Significant for low-grade fevers, dry nonproductive cough. She has morbid obesity. All other systems reviewed and turned to be negative. CURRENT MEDICINES SCHEDULED: She was on an albuterol inhaler only. She evidently sees a physician through a [facility] system. No local land-based physician. PHYSICAL EXAMINATION: GENERAL: When I saw her, this is a pleasant, middle-aged obese female. VITAL SIGNS: Showed a blood pressure of 125/70, her pulse is 70 and regular. She was afebrile, oxygen saturation when I saw her was 95% on 4 liters. HEENT: Head is without trauma. Pupils are reactive. Sclerae are nonicteric. The oropharynx is clear. NECK: Supple. LUNGS: Minimal wheezing in the upper airways. CARDIOVASCULAR: Regular heart tones. ABDOMEN: Soft, obese, protuberant. EXTREMITIES: Show trace edema. NEUROLOGIC: Focally intact. SKIN: Warm and dry. PERTINENT LABORATORY STUDIES: The hemoglobin is 16.1 g/dL with a white count of 14,000. Electrolytes, BUN and creatinine all within normal range. Nonfasting blood sugar 113. Cardiac enzymes were negative. BNP was 247. ASSESSMENT: 1. A 56-year-old female with exacerbation of chronic obstructive pulmonary disease. 2. Chronic tobacco addiction. 3. Morbid obesity. PLAN: 1. Admit to the observation status to the inpatient unit. 2. Corticosteroids. 3. Nebulizer. 4. Empiric antibiotics. She does have a bronchitis component and is smoking. FARRUKH/MARCO DR: Belkis TID: [id number]
--- NOTE | 2021-10-21 16:38 | DS ---
DATE OF DISCHARGE: 10/21/2021 ATTENDING PHYSICIAN: Dr. Hammonds. FINAL DISCHARGE DIAGNOSES: 1. Acute exacerbation of chronic obstructive pulmonary disease. 2. Chronic bronchitis. 3. Obesity. HISTORY AND PHYSICAL: The patient is a 56-year-old female, smoker, admitted with exacerbation of chronic obstructive pulmonary disease. Oxygen saturation marginal. She was admitted overnight for observation. We started her on antibiotics and steroids. Her chest x-ray was clear. PHYSICAL EXAMINATION: Please see my dictated note. PERTINENT LABORATORY AND X-RAY STUDIES: Normal CBC, chemistry panel. The cardiac enzymes were negative. The chest x-ray showed poor aeration, but clear lung dior. COURSE IN HOSPITAL: The patient was admitted overnight. We weaned her off of supplemental oxygen. We continued her steroids. She was ready for discharge the next day. I wrote a script for cephalexin 500 mg p.o. t.i.d. for 7 more days, prednisone 60 mg daily for 7 days and stop, albuterol metered dose inhaler 2 puffs q.i.d. and finally Tessalon Perles 100 mg 2 every 8 hours p.r.n. cough. I gave her a note for work release through 10/24/2021. 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 She was discharged in stable condition with explicit drug and followup care. Strong encouragement to avoid further tobacco use. Whether or not she will quit smoking remains to be seen. VINCE/LANDEN/AYDEE DR: VINCE/perlita TID: [id number] Signed for Dr. Hammonds due to longterm. LUCITAD
== END 2021-10-21 11:45 | disposition home or self-care (01) ==
LOC: ER 12:53 → INTOOBSV 15:46 → ER HOLD 15:46 → 1 SOUTH 19:01 → UNDODISOB 10-21 11:45
PROVIDERS: ADMIT Hospitalist; ATTEND Hospitalist
DX: J44.1 Chronic obstructive pulmonary disease with (acute) exacerbation (principal); Z20.822 Contact with and (suspected) exposure to COVID-19; J96.21 Acute and chronic respiratory failure with hypoxia; F17.210 Nicotine dependence, cigarettes, uncomplicated; E66.01 Morbid (severe) obesity due to excess calories; I10 Essential (primary) hypertension; Z85.41 Personal history of malignant neoplasm of cervix uteri; Z90.710 Acquired absence of both cervix and uterus; Z90.49 Acquired absence of other specified parts of digestive tract; Z68.41 Body mass index [BMI] 40.0-44.9, adult
CPT/HCPCS: 36415; 71045; 80048; 80053; 83880; 84484; 85025; 87428; 93005; 94640; 96361; 96374; 96376; G0378; G0379; J2930; U0003; 99285-25; J7030; J7613